=== PATIENT | female | born 1970 | race American Indian/Alaskan Native ===

== ENCOUNTER 2017-07-22 19:50 | Emergency (ER) | payer MEDICAID ==
[~2017-07-22] VITALS: Ht 157.5 cm; Wt 75.0 kg
[~2017-07-22 19:50] MED LIST: ALBU8.5H4 IH; DIL100C PO; PHEN100C4 PO
[2017-07-22] MEDS ORDERED: normal saline 1000ML IV soln IVB ONE (20:45)
[2017-07-22] MEDS ORDERED: LORazepam 2 mg/ml vial IV ONE (20:45)
[2017-07-22 21:20] LABS: BASOPHILS # (AUTO) 0.1 X10'3 (0-0.2); BASOPHILS % (AUTO) 0.6 % (0-1); EOSINOPHILS # (AUTO) 0.1 X10'3 (0-0.9); EOSINOPHILS % (AUTO) 1.6 % (0-6); HEMATOCRIT 23.9 % (35.0-45.0); HEMOGLOBIN 7.4 g/dl (12.0-16.0); LYMPHOCYTES # (AUTO) 1.8 X10'3 (1.1-4.8); LYMPHOCYTES % (AUTO) 20.6 % (21-51); MEAN CORPUSCULAR HEMOGLOBIN 19.1 PG (27.0-31.0); MEAN CORPUSCULAR HGB CONC 31.1 % (33.0-36.5); MEAN CORPUSCULAR VOLUME 61.5 FL (78-98); MEAN PLATELET VOLUME 8.7 FL (7.4-10.4); MONOCYTES # (AUTO) 0.4 X10'3 (0-0.9); MONOCYTES % (AUTO) 4.8 % (2-12); NEUTROPHILS # (AUTO) 6.3 X10'3 (1.8-7.7); NEUTROPHILS % (AUTO) 72.4 % (42-75); PLATELET COUNT 264 X10'3 (140-440); RED BLOOD COUNT 3.88 X10'6 (4.20-5.60); RED CELL DISTRIBUTION WIDTH 20.3 % (11.5-14.5); WHITE BLOOD COUNT 8.7 X10'3 (4.5-11.0)
[2017-07-22 21:31] LABS: PARTIAL THROMBOPLASTIN TIME 24 SECONDS (22-32); PROTHROMBIN TIME 10.3 SECONDS (9.0-12.0)
[2017-07-22 21:35] LABS: ALANINE AMINOTRANSFERASE 78 U/L (12-78); ALBUMIN 3.4 G/DL (3.4-5.0); ALBUMIN/GLOBULIN RATIO 0.8 (1.1-1.5); ALKALINE PHOSPHATASE 102 IU/L (46-116); ANION GAP 10 (8-16); ASPARTATE AMINO TRANSFERASE 42 U/L (10-37); BILIRUBIN,TOTAL 0.2 MG/DL (0.1-1.0); BLOOD UREA NITROGEN 14 MG/DL (7-18); BUN/CREATININE RATIO 12.2 (6.6-38.0); CALCIUM 8.8 MG/DL (8.5-10.1); CHLORIDE 104 MMOL/L (99-107); CREATININE 1.15 MG/DL (0.40-0.90); ETHANOL < 0.010 GM/DL (0.0-0.010); GLUCOSE 112 MG/DL (70-104); PHENYTOIN (DILANTIN) < 0.5 UG/ML (10.0-20.0); POTASSIUM 3.4 MMOL/L (3.5-5.1); SODIUM 141 MMOL/L (135-145); TOTAL PROTEIN 7.5 G/DL (6.4-8.2); eGFR 51 ML/MIN
[2017-07-22 21:40] LABS: URINE AMPHETAMINE SCREEN NEGATIVE (Neg); URINE BARBITUATE SCREEN NEGATIVE (Neg); URINE BENZODIAZEPINES SCREEN NEGATIVE (Neg); URINE CANNABINOID SCREEN NEGATIVE (Neg); URINE COCAINE SCREEN NEGATIVE (Neg); URINE METHADONE SCREEN NEGATIVE (Neg); URINE OPIATE SCREEN NEGATIVE (Neg); URINE PHENCYCLIDINE SCREEN NEGATIVE (Neg)
[2017-07-22] MEDS ORDERED: levetiracetam inj 1,500 MG in normal saline 100ml IV soln 85 ML IV STA (21:46)
[2017-07-22 21:48] LABS: CLARITY,URINE SLIGHTLY CLOUDY (Clear); COLOR,URINE YELLOW (Yellow); GLUCOSE, URINE NEGATIVE (Neg); KETONES,URINE NEGATIVE (Neg); LEUKOCYTE ESTERASE ,URINE SMALL (Neg); NITRITES, URINE POSITIVE (Neg); OCCULT BLOOD,URINE NEGATIVE (Neg); PROTEIN,URINE NEGATIVE (Neg); UROBILINOGEN,URINE 0.2 E.U/dL (0.2-1.0)
[2017-07-22] MEDS ORDERED: KEP500T PO (21:51)
[2017-07-22 21:56] LABS: UA COLLECTION TYPE CLN CATCH MIDSTREAM
[2017-07-22 21:57] LABS: BACTERIA,URINE 4+ /HPF (Neg); RBC,URINE 0-2 /HPF (0-2)
[2017-07-22 21:58] LABS: SQUAMOUS EPITHELIAL CELL,UR FEW /LPF (FEW)
[2017-07-22] MEDS ORDERED: levetiracetam 100mg/ml inj IV ONE (22:05)
[2017-07-22 22:36] LABS: PLATELET ESTIMATE NORMAL
[2017-07-22 22:37] VITALS: BP 94/65
[2017-07-22 22:37] LABS: ANISOCYTOSIS 2+; MICROCYTOSIS 2+
[2017-07-22 22:38] LABS: HYPOCHROMASIA 1+
[2017-07-22 22:39] LABS: ELLIPTOCYTES 1+; TEAR DROP CELLS 1+
== END 2017-07-22 22:52 | disposition home or self-care (01) ==
LOC: ER 19:51
DX: R56.9 Unspecified convulsions (principal); T75.1XXA Unspecified effects of drowning and nonfatal submersion, initial encounter; D64.9 Anemia, unspecified; Y93.39 Activity, other involving climbing, rappelling and jumping off; Y92.89 Other specified places as the place of occurrence of the external cause; Y99.8 Other external cause status; I10 Essential (primary) hypertension; J45.909 Unspecified asthma, uncomplicated; Z90.49 Acquired absence of other specified parts of digestive tract; Z88.5 Allergy status to narcotic agent; Z88.1 Allergy status to other antibiotic agents; Z88.8 Allergy status to other drugs, medicaments and biological substances; Z91.018 Allergy to other foods; Z79.899 Other long term (current) drug therapy
CPT/HCPCS: 36415; 70450; 71045; 80053; 80185; 80305; 80320; 81001; 82140; 82948; 85025; 85610; 85730; 87077; 87088; 87186; 93005; 96361; 96374; 96375; 99285; J1953; J2060; J7030

== ENCOUNTER 2018-02-18 18:25 | Emergency (ER) | payer MEDICAID ==
[~2018-02-18] VITALS: Ht 160 cm; Wt 80.0 kg
[~2018-02-18 18:25] MED LIST changes: +BACI28OI9 TP; +KEP500T PO
[2018-02-18 18:31] VITALS: BP 129/84
[2018-02-18] MEDS ORDERED: ibuprofen 200mg tablet PO ONE (19:05)
[2018-02-18] MEDS ORDERED: ibuprofen tablet 400 MG TABLET PO ONE (19:05)
== END 2018-02-18 19:59 | disposition home or self-care (01) ==
LOC: ER 18:25
DX: S53.402A Unspecified sprain of left elbow, initial encounter (principal); I10 Essential (primary) hypertension; J45.909 Unspecified asthma, uncomplicated; Z90.49 Acquired absence of other specified parts of digestive tract; Z88.5 Allergy status to narcotic agent; Z91.018 Allergy to other foods; Z88.1 Allergy status to other antibiotic agents; Z88.8 Allergy status to other drugs, medicaments and biological substances; Z79.899 Other long term (current) drug therapy; W17.89XA Other fall from one level to another, initial encounter; Y93.89 Activity, other specified; Y92.89 Other specified places as the place of occurrence of the external cause; Y99.8 Other external cause status
CPT/HCPCS: 29125; 73090; 99284

== ENCOUNTER 2018-02-27 09:37 | Outpatient (CLI) | payer MEDICAID ==
[2018-02-27 09:35] VITALS: BP 108/72
[2018-02-28] MEDS ORDERED: IBUP-1985 PO (22:51)
== END 2018-02-27 10:22 | disposition home or self-care (01) ==
LOC: ORTHO 09:37
PROVIDERS: ATTEND Nurse Practitioner Family
DX: S59.812A Other specified injuries left forearm, initial encounter (principal); S69.82XA Other specified injuries of left wrist, hand and finger(s), initial encounter; J45.909 Unspecified asthma, uncomplicated; Z88.5 Allergy status to narcotic agent; Z88.1 Allergy status to other antibiotic agents; Z88.8 Allergy status to other drugs, medicaments and biological substances; W18.39XA Other fall on same level, initial encounter; Y93.89 Activity, other specified; Y92.89 Other specified places as the place of occurrence of the external cause; Y99.8 Other external cause status
CPT/HCPCS: 99213; A4590

== ENCOUNTER 2018-02-28 21:26 | Emergency (ER) | payer MEDICAID ==
[~2018-02-28] VITALS: Ht 160 cm; Wt 100.0 kg
[2018-02-28 21:46] VITALS: BP 131/83
[2018-02-28] MEDS ORDERED: HYDROcodone/acetaminophen 5mg/325mg tablet PO ONE (22:40)
[2018-02-28] MEDS ORDERED: IBUP-1985 PO (22:51)
== END 2018-02-28 23:33 | disposition home or self-care (01) ==
LOC: ER 21:27
DX: S96.912A Strain of unspecified muscle and tendon at ankle and foot level, left foot, initial encounter (principal); I10 Essential (primary) hypertension; J45.909 Unspecified asthma, uncomplicated; Z90.49 Acquired absence of other specified parts of digestive tract; Z88.6 Allergy status to analgesic agent; Z88.1 Allergy status to other antibiotic agents; Z88.8 Allergy status to other drugs, medicaments and biological substances; Z91.018 Allergy to other foods; X58.XXXA Exposure to other specified factors, initial encounter; Y93.89 Activity, other specified; Y92.89 Other specified places as the place of occurrence of the external cause; Y99.8 Other external cause status
CPT/HCPCS: 29515; 73610; 99283

== ENCOUNTER 2018-03-02 18:54 | Emergency (ER) | payer MEDICAID ==
[~2018-03-02] VITALS: Ht 160 cm; Wt 100.0 kg
[~2018-03-02 18:54] MED LIST changes: +IBUP-1985 PO
[2018-03-02 19:00] VITALS: BP 122/70
--- NOTE | 2018-03-02 19:25 | NUR ---
PT STATES, IM HERE FOR ANOTHER XRAY
== END 2018-03-02 19:52 | disposition home or self-care (01) ==
LOC: ER 18:54
DX: M79.672 Pain in left foot (principal); I10 Essential (primary) hypertension; J45.909 Unspecified asthma, uncomplicated; Z90.49 Acquired absence of other specified parts of digestive tract; Z98.890 Other specified postprocedural states; Z88.5 Allergy status to narcotic agent; Z88.1 Allergy status to other antibiotic agents; Z79.899 Other long term (current) drug therapy
CPT/HCPCS: 99281

== ENCOUNTER 2018-03-06 14:28 | Outpatient (CLI) | payer MEDICAID ==
[2018-03-06 14:30] VITALS: BP 125/79
== END 2018-03-06 15:00 | disposition home or self-care (01) ==
LOC: ORTHO 14:28
PROVIDERS: ATTEND Nurse Practitioner Family
DX: S82.832A Other fracture of upper and lower end of left fibula, initial encounter for closed fracture (principal); I10 Essential (primary) hypertension; J45.909 Unspecified asthma, uncomplicated; F41.9 Anxiety disorder, unspecified; R56.9 Unspecified convulsions; Z90.49 Acquired absence of other specified parts of digestive tract; Z88.6 Allergy status to analgesic agent; Z88.1 Allergy status to other antibiotic agents; Z88.8 Allergy status to other drugs, medicaments and biological substances; Z91.018 Allergy to other foods; X58.XXXA Exposure to other specified factors, initial encounter; Y93.89 Activity, other specified; Y92.89 Other specified places as the place of occurrence of the external cause; Y99.8 Other external cause status
CPT/HCPCS: G0463

== ENCOUNTER 2018-04-01 11:37 | Outpatient (CLI) | payer MEDICAID ==
[2018-04-01 11:33] VITALS: BP 136/80
== END 2018-04-01 12:08 | disposition home or self-care (01) ==
LOC: ORTHO 11:37
PROVIDERS: ATTEND Nurse Practitioner Family
DX: M25.572 Pain in left ankle and joints of left foot (principal); J45.909 Unspecified asthma, uncomplicated; Z88.5 Allergy status to narcotic agent; Z88.8 Allergy status to other drugs, medicaments and biological substances; Z91.018 Allergy to other foods
CPT/HCPCS: 73610; 99213

== ENCOUNTER 2018-04-24 11:00 | Outpatient (CLI) | payer MEDICAID ==
[2018-04-24 11:03] VITALS: BP 126/73
== END 2018-04-24 11:27 | disposition home or self-care (01) ==
LOC: ORTHO 11:00
PROVIDERS: ATTEND Nurse Practitioner Family
DX: M77.32 Calcaneal spur, left foot (principal); M19.072 Primary osteoarthritis, left ankle and foot; J45.909 Unspecified asthma, uncomplicated; Z88.5 Allergy status to narcotic agent; Z88.1 Allergy status to other antibiotic agents; Z91.018 Allergy to other foods
CPT/HCPCS: 73610; 99213

== ENCOUNTER 2018-05-21 15:00 | Outpatient (CLI) | payer MEDICAID ==
[2018-05-21 14:58] VITALS: BP 151/85
== END 2018-05-21 15:02 | disposition home or self-care (01) ==
LOC: ORTHO 15:00
PROVIDERS: ATTEND Orthopaedic Surgery
DX: M19.072 Primary osteoarthritis, left ankle and foot (principal); G40.89 Other seizures; J45.909 Unspecified asthma, uncomplicated; Z88.5 Allergy status to narcotic agent; Z88.8 Allergy status to other drugs, medicaments and biological substances
CPT/HCPCS: 73610; 99213

== ENCOUNTER 2018-07-03 13:26 | Emergency (ER) | payer MEDICAID ==
[~2018-07-03] VITALS: Ht 160 cm; Wt 99.5 kg
[~2018-07-03 13:26] MED LIST changes: +ALBU8HFA PO; +PSEU120T55 PO
[2018-07-03 13:40] VITALS: BP 116/72
--- NOTE | 2018-07-03 14:42 | NUR ---
PATIENT AMBULATORY TO ER FAST TRACK #C WITH C/O DOG BITE ON LEFT FOREARM THIS MORNING. THE DOG IS 3 MONTHS OLD AND BELONGS TO HER DAUGHTER. DOG IS NOT VACCINATED AT THIS TIME. 2 SCABBED PUNCTURE WOUNDS NOTED TO DISTAL LEFT FOREARM. NO DRAINAGE AT THIS TIME.
[2018-07-03] MEDS ORDERED: TETanus/Pertussis (Acell)/Diphther VAC/PF (Tdap-Adult) 0.5ml syringe IM ONE (14:50)
[2018-07-03] MEDS ORDERED: AMOX-422 PO (14:51)
== END 2018-07-03 15:17 | disposition home or self-care (01) ==
LOC: ER 13:27
DX: S61.532A Puncture wound without foreign body of left wrist, initial encounter (principal); I10 Essential (primary) hypertension; J45.909 Unspecified asthma, uncomplicated; Z90.49 Acquired absence of other specified parts of digestive tract; Z98.890 Other specified postprocedural states; Z60.2 Problems related to living alone; Z88.5 Allergy status to narcotic agent; Z91.018 Allergy to other foods; Z88.1 Allergy status to other antibiotic agents; Z79.899 Other long term (current) drug therapy; W54.0XXA Bitten by dog, initial encounter; Y93.89 Activity, other specified; Y92.89 Other specified places as the place of occurrence of the external cause; Y99.8 Other external cause status
CPT/HCPCS: 90471; 90715; 99283

== ENCOUNTER 2018-11-16 18:07 | Emergency (ER) | payer MEDICAID ==
[~2018-11-16] VITALS: Ht 162.6 cm; Wt 92.7 kg
[~2018-11-16 18:07] MED LIST changes: -ALBU8HFA PO
[2018-11-16] MEDS ORDERED: ketorolac tromethamine 15mg/ml inj. IM ONE (18:35)
[2018-11-16 19:26] VITALS: BP 134/95
--- NOTE | 2018-11-16 20:07 | NUR ---
pt discharged before nurse assessed
== END 2018-11-16 19:40 | disposition home or self-care (01) ==
LOC: ER 18:08
DX: M25.572 Pain in left ankle and joints of left foot (principal); I10 Essential (primary) hypertension; J45.909 Unspecified asthma, uncomplicated; Z90.49 Acquired absence of other specified parts of digestive tract; Z98.890 Other specified postprocedural states; Z88.5 Allergy status to narcotic agent; Z88.1 Allergy status to other antibiotic agents; W18.30XA Fall on same level, unspecified, initial encounter; Y93.89 Activity, other specified; Y92.89 Other specified places as the place of occurrence of the external cause; Y99.9 Unspecified external cause status
CPT/HCPCS: 96372; 99283; J1885

== ENCOUNTER 2018-12-06 20:08 | Emergency (ER) | payer MEDICAID | END 2018-12-06 22:00 | disposition left against medical advice (07) | LOC: ER 20:09 | DX: M79.605 Pain in left leg (principal); Z53.21 Procedure and treatment not carried out due to patient leaving prior to being seen by health care provider ==

== ENCOUNTER 2019-02-08 16:15 | Emergency (ER) | payer MEDICAID ==
[~2019-02-08] VITALS: Ht 157.5 cm; Wt 90.0 kg
--- NOTE | 2019-02-08 17:23 | NUR ---
chest xray done
[2019-02-08 17:29] LABS: BASOPHILS # (AUTO) 0.1 X10'3 (0-0.2); BASOPHILS % (AUTO) 1.5 % (0-1); EOSINOPHILS # (AUTO) 0.2 X10'3 (0-0.9); EOSINOPHILS % (AUTO) 2.5 % (0-6); HEMATOCRIT 27.2 % (35.0-45.0); HEMOGLOBIN 8.6 g/dl (12.0-16.0); LYMPHOCYTES # (AUTO) 1.9 X10'3 (1.1-4.8); LYMPHOCYTES % (AUTO) 30.9 % (21-51); MEAN CORPUSCULAR HEMOGLOBIN 20.6 PG (27.0-31.0); MEAN CORPUSCULAR HGB CONC 31.6 g/dL (33.0-36.5); MEAN CORPUSCULAR VOLUME 65.2 FL (78-98); MEAN PLATELET VOLUME 9.1 FL (7.4-10.4); MONOCYTES # (AUTO) 0.4 X10'3 (0-0.9); MONOCYTES % (AUTO) 6.7 % (2-12); NEUTROPHILS # (AUTO) 3.6 X10'3 (1.8-7.7); NEUTROPHILS % (AUTO) 58.4 % (42-75); PLATELET COUNT 271 X10'3 (140-440); RED BLOOD COUNT 4.17 X10'6 (4.20-5.60); RED CELL DISTRIBUTION WIDTH 19.1 % (11.5-14.5); WHITE BLOOD COUNT 6.2 X10'3 (4.5-11.0)
[2019-02-08 17:30] VITALS: BP 116/73
[2019-02-08 17:47] LABS: ALANINE AMINOTRANSFERASE 34 U/L (12-78); ALBUMIN 3.7 G/DL (3.4-5.0); ALBUMIN/GLOBULIN RATIO 0.9 (1.1-1.5); ALKALINE PHOSPHATASE 75 IU/L (46-116); ANION GAP 8 (8-16); ASPARTATE AMINO TRANSFERASE 17 U/L (10-37); BILIRUBIN,TOTAL 0.2 MG/DL (0.1-1.0); BLOOD UREA NITROGEN 22 MG/DL (7-18); BUN/CREATININE RATIO 24.4 (6.6-38.0); CALCIUM 8.8 MG/DL (8.5-10.1); CHLORIDE 105 MMOL/L (99-107); GLUCOSE 92 MG/DL (70-104); POTASSIUM 3.9 MMOL/L (3.5-5.1); SODIUM 141 MMOL/L (135-145); TOTAL CARBON DIOXIDE 27.8 MMOL/L (24-32); TOTAL PROTEIN 7.8 G/DL (6.4-8.2); eGFR 67 ML/MIN
[2019-02-08] MEDS ORDERED: ipratropium/albuterol 3ml nebule NEB ONE (18:05)
== END 2019-02-08 18:50 | disposition home or self-care (01) ==
LOC: ER 16:16
DX: J45.909 Unspecified asthma, uncomplicated (principal); J06.9 Acute upper respiratory infection, unspecified; R10.13 Epigastric pain; R06.02 Shortness of breath; I10 Essential (primary) hypertension; Z90.49 Acquired absence of other specified parts of digestive tract; Z98.890 Other specified postprocedural states; Z88.5 Allergy status to narcotic agent; Z88.1 Allergy status to other antibiotic agents; Z88.8 Allergy status to other drugs, medicaments and biological substances; Z79.899 Other long term (current) drug therapy
CPT/HCPCS: 71045; 80053; 85025; 94640; 94760; 99284

== ENCOUNTER 2019-02-26 12:07 | Emergency (ER) | payer MEDICAID ==
[~2019-02-26] VITALS: Ht 157.5 cm; Wt 87.5 kg
[~2019-02-26 12:07] MED LIST changes: -BACI28OI9 TP; -DIL100C PO; -IBUP-1985 PO; -KEP500T PO; -PHEN100C4 PO; -PSEU120T55 PO
[2019-02-26 12:11] VITALS: BP 118/90
[2019-02-26] MEDS ORDERED: SULF1TAB49 PO (12:57)
== END 2019-02-26 13:10 | disposition home or self-care (01) ==
LOC: ER 12:08
DX: S30.861A Insect bite (nonvenomous) of abdominal wall, initial encounter (principal); L03.311 Cellulitis of abdominal wall; I10 Essential (primary) hypertension; J45.909 Unspecified asthma, uncomplicated; Z90.49 Acquired absence of other specified parts of digestive tract; Z98.890 Other specified postprocedural states; Z88.5 Allergy status to narcotic agent; Z88.1 Allergy status to other antibiotic agents; W57.XXXA Bitten or stung by nonvenomous insect and other nonvenomous arthropods, initial encounter; Y93.89 Activity, other specified; Y92.89 Other specified places as the place of occurrence of the external cause; Y99.9 Unspecified external cause status
CPT/HCPCS: 99283

== ENCOUNTER 2019-08-21 15:26 | Emergency (ER) | payer MEDICAID ==
[~2019-08-21] VITALS: Ht 172.7 cm; Wt 90.0 kg
[2019-08-21] MEDS ORDERED: ibuprofen tablet 400 MG TABLET PO ONE (16:20)
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
[2019-08-21] MEDS ORDERED: IBUP-1984 PO (17:07)
[2019-08-21 17:12] VITALS: BP 131/84
--- NOTE | 2019-08-21 17:26 | NUR ---
patient verbalized she was discharging to a safe place and had her own slide card to ride the bus. She left her cell number so that it can be given to the Officer when they show up to take the report. [phone] cell
== END 2019-08-21 17:42 | disposition home or self-care (01) ==
LOC: ER 15:27
DX: M25.522 Pain in left elbow (principal); M25.532 Pain in left wrist; I10 Essential (primary) hypertension; J45.909 Unspecified asthma, uncomplicated; F41.9 Anxiety disorder, unspecified; Z90.89 Acquired absence of other organs; Z98.890 Other specified postprocedural states; Z60.2 Problems related to living alone; Z88.5 Allergy status to narcotic agent; Z88.1 Allergy status to other antibiotic agents; Z91.018 Allergy to other foods; Z88.8 Allergy status to other drugs, medicaments and biological substances; Z79.899 Other long term (current) drug therapy
CPT/HCPCS: 73080; 99283

== ENCOUNTER 2019-10-03 11:40 | Emergency (ER) | payer MEDICAID ==
[~2019-10-03] VITALS: Ht 165.1 cm; Wt 75.0 kg
[2019-10-03 11:58] VITALS: BP 105/54
[2019-10-03] MEDS ORDERED: DOXY100C43 PO (14:31)
== END 2019-10-03 14:55 | disposition home or self-care (01) ==
LOC: ER 11:41
DX: H00.036 Abscess of eyelid left eye, unspecified eyelid (principal); I10 Essential (primary) hypertension; J45.909 Unspecified asthma, uncomplicated; F41.9 Anxiety disorder, unspecified; Z86.69 Personal history of other diseases of the nervous system and sense organs; Z90.89 Acquired absence of other organs; Z98.890 Other specified postprocedural states; Z60.2 Problems related to living alone; Z88.5 Allergy status to narcotic agent; Z88.1 Allergy status to other antibiotic agents; Z88.8 Allergy status to other drugs, medicaments and biological substances; Z79.899 Other long term (current) drug therapy
CPT/HCPCS: 99283

== ENCOUNTER 2020-01-06 17:15 | Emergency (ER) | payer MEDICAID ==
[~2020-01-06] VITALS: Ht 160 cm; Wt 102.5 kg
[2020-01-06 17:24] VITALS: BP 127/77
[2020-01-06] MEDS ORDERED: IBUP-1984 PO (18:58)
== END 2020-01-06 19:11 | disposition home or self-care (01) ==
LOC: ER 17:16
DX: R07.89 Other chest pain (principal); I10 Essential (primary) hypertension; J45.909 Unspecified asthma, uncomplicated; F41.9 Anxiety disorder, unspecified; Z79.899 Other long term (current) drug therapy; Z88.5 Allergy status to narcotic agent; Z88.1 Allergy status to other antibiotic agents; Z91.018 Allergy to other foods; V87.7XXA Person injured in collision between other specified motor vehicles (traffic), initial encounter; Y93.89 Activity, other specified; Y92.89 Other specified places as the place of occurrence of the external cause; Y99.8 Other external cause status
CPT/HCPCS: 71045; 99283

== ENCOUNTER 2020-09-25 14:16 | Emergency (ER) | payer MEDICAID ==
[~2020-09-25] VITALS: Ht 157.5 cm; Wt 102.7 kg
[2020-09-25 14:25] VITALS: BP 105/72
== END 2020-09-25 16:22 | disposition home or self-care (01) ==
LOC: ER 14:16
DX: S90.32XA Contusion of left foot, initial encounter (principal); I10 Essential (primary) hypertension; J45.909 Unspecified asthma, uncomplicated; S99.922A Unspecified injury of left foot, initial encounter; G40.909 Epilepsy, unspecified, not intractable, without status epilepticus; Z88.5 Allergy status to narcotic agent; Z88.1 Allergy status to other antibiotic agents; Z91.018 Allergy to other foods; Z79.899 Other long term (current) drug therapy; Z87.81 Personal history of (healed) traumatic fracture; Z90.49 Acquired absence of other specified parts of digestive tract; Z98.891 History of uterine scar from previous surgery; W22.8XXA Striking against or struck by other objects, initial encounter; Y93.89 Activity, other specified; Y92.524 Gas station as the place of occurrence of the external cause; Y99.8 Other external cause status
CPT/HCPCS: 73630; 99283

== ENCOUNTER 2021-03-02 15:27 | Emergency (ER) | payer MEDICAID ==
[~2021-03-02] VITALS: Ht 157.5 cm; Wt 93.2 kg
[2021-03-03] MEDS ORDERED: ketorolac trometh inj. 60 MG/2 ML VIAL IM ONE (00:45)
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
[2021-03-03 02:00] VITALS: BP 121/76
== END 2021-03-03 02:03 | disposition home or self-care (01) ==
LOC: ER 15:28
DX: M54.50 Low back pain, unspecified (principal); I10 Essential (primary) hypertension; J45.909 Unspecified asthma, uncomplicated; F41.9 Anxiety disorder, unspecified; Z86.69 Personal history of other diseases of the nervous system and sense organs; Z90.89 Acquired absence of other organs; Z98.890 Other specified postprocedural states; Z60.2 Problems related to living alone; Z88.5 Allergy status to narcotic agent; Z88.1 Allergy status to other antibiotic agents; Z88.8 Allergy status to other drugs, medicaments and biological substances; Z79.899 Other long term (current) drug therapy; Y08.89XA Assault by other specified means, initial encounter; Y93.89 Activity, other specified; Y92.89 Other specified places as the place of occurrence of the external cause; Y99.8 Other external cause status
CPT/HCPCS: 72110; 96372; 99283; J1885

== ENCOUNTER 2021-07-29 18:28 | Emergency (ER) | payer MEDICAID ==
[~2021-07-29] VITALS: Ht 157.5 cm; Wt 95.5 kg
[2021-07-29 18:40] VITALS: BP 125/93
[2021-07-29] MEDS ORDERED: ketorolac trometh. 30mg/ml inj. IM ONE (20:40)
== END 2021-07-29 20:57 | disposition home or self-care (01) ==
LOC: ER 18:29
DX: M54.50 Low back pain, unspecified (principal); M25.551 Pain in right hip; I10 Essential (primary) hypertension; J45.909 Unspecified asthma, uncomplicated; F41.9 Anxiety disorder, unspecified; Z90.49 Acquired absence of other specified parts of digestive tract; Z98.890 Other specified postprocedural states; Z60.2 Problems related to living alone; Z88.5 Allergy status to narcotic agent; Z91.018 Allergy to other foods; Z88.1 Allergy status to other antibiotic agents; Z79.899 Other long term (current) drug therapy
CPT/HCPCS: 72100; 73502; 96372; 99284; J1885

== ENCOUNTER 2023-08-30 15:36 | Emergency (ER) | payer MEDICAID ==
[~2023-08-30] VITALS: Ht 157.5 cm; Wt 98.7 kg
[2023-08-30] MEDS: acetaminophen 325mg tablet PO ONE (16:37)
[2023-08-30] MEDS: ondansetron 4mg rapidly disintigrating tab PO ONE (16:37)
[2023-08-30 17:26] VITALS: BP 132/78; PULSE 75; RESP 14; TEMP 98.6; O2SAT 98
== END 2023-08-30 17:28 | disposition home or self-care (01) ==
LOC: ER 15:37
DX: S02.40CA Maxillary fracture, right side, initial encounter for closed fracture (principal); S06.0X0A Concussion without loss of consciousness, initial encounter; I10 Essential (primary) hypertension; J45.909 Unspecified asthma, uncomplicated; I25.10 Atherosclerotic heart disease of native coronary artery without angina pectoris; F41.9 Anxiety disorder, unspecified; Z98.890 Other specified postprocedural states; Z90.49 Acquired absence of other specified parts of digestive tract; Z88.1 Allergy status to other antibiotic agents; Z88.8 Allergy status to other drugs, medicaments and biological substances; Z91.018 Allergy to other foods; Z79.899 Other long term (current) drug therapy; X58.XXXA Exposure to other specified factors, initial encounter; Y93.9 Activity, unspecified; Y92.89 Other specified places as the place of occurrence of the external cause; Y99.8 Other external cause status
CPT/HCPCS: 70450; 70486; 99284

== ENCOUNTER 2023-09-27 17:31 | Emergency (ER) | payer MEDICAID ==
[~2023-09-27] VITALS: Ht 157.5 cm; Wt 99.2 kg
[2023-09-27] MEDS: dexamethasone sod phosphate 10mg/ml inj IM STA (18:06)
[2023-09-27] MEDS: diphenhydrAMINE 50 mg/ml inj IM ONE (18:06)
[2023-09-27] MEDS ORDERED: PRED50TA PO (18:19)
[2023-09-27] MEDS ORDERED: HYDR-3686 PO (18:19)
[2023-09-27 18:24] VITALS: BP 146/84; PULSE 92; RESP 16; TEMP 98.6; O2SAT 95
== END 2023-09-27 18:28 | disposition home or self-care (01) ==
LOC: ER 17:31
DX: T63.441A Toxic effect of venom of bees, accidental (unintentional), initial encounter (principal); H01.9 Unspecified inflammation of eyelid; I10 Essential (primary) hypertension; J45.909 Unspecified asthma, uncomplicated; F41.9 Anxiety disorder, unspecified; I25.10 Atherosclerotic heart disease of native coronary artery without angina pectoris; Z88.5 Allergy status to narcotic agent; Z88.1 Allergy status to other antibiotic agents; Z91.018 Allergy to other foods; Z79.899 Other long term (current) drug therapy; Y92.89 Other specified places as the place of occurrence of the external cause
CPT/HCPCS: 96372; 99284; J1100; J1200

== ENCOUNTER 2024-10-23 16:12 | Emergency (ER) | payer MEDICAID ==
[~2024-10-23] VITALS: Ht 157.5 cm; Wt 109.0 kg
[~2024-10-23 16:12] MED LIST changes: +PRED50TA PO
[2024-10-23 16:15] VITALS: BP 116/75; PULSE 95; RESP 16; O2SAT 95
--- NOTE | 2024-10-23 16:48 | Physician Documentation ---
History of Present Illness ~ Chief Complaint: Elbow pain Stated Complaint: FALL Time Seen by MD: 17:29 Primary Medical Doctor: [facility] HPI This is a 54-year-old female who presents with left elbow pain following a ground level trip and fall, patient reports range of motion intact. Tetanus within 5 years: No Medication Reconciliation Allergies: Coded Allergies: morphine (Verified Allergy, Intermediate, 09/27/23) strawberry (Verified Allergy, Intermediate, 09/27/23) Cephalexin Monohydrate (Unverified Allergy, Unknown, RASH, 09/27/23) carbamazepine (Unverified Allergy, Unknown, 09/27/23) Scheduled Prednisone (Prednisone), 1 TAB PO DAILY Scheduled PRN Albuterol Inhaler* (Albuterol Inhaler*), 1 PUFF IH Q6H PRN for SOB or wheezing, (Reported) Past Medical History Past Medical History: Headache, Seizures, *CARDIOVASCULAR*, Hypertension, Asthma, Extremity Fracture, Anxiety Past Surgical History: abdominal surgery, appendectomy, Patient History: (CAD) Coronary arteriosclerosis FATHER, , Age: 71 (DM Type 2) Diabetes mellitus type 2 MOTHER (TIA) Transient ischemic attack FATHER, , Age: 71 MOTHER Alcohol Use: None Drug Use: none Lives with: Alone Lives In: Home Occupation: disabled Review of Systems ROS As stated above in the HPI, otherwise all systems are reviewed and negative. Physical Exam Vital Signs: Temperature: 98.2, Source: Temporal, Heart Rate: 95, Respiratory Rate: 16, BP: 116/75, Pulse Oximetry: 95, Weight: 109.000 Oxygen Flow Rate: 0 Physical Exam VITALS: Reviewed and as above. GENERAL: Alert, nontoxic appearing, no apparent distress. RESPIRATORY: No increased work of breathing, no respiratory distress, speaking in full clear sentences CV: Brisk capillary refill and radial pulse intact distal to injury MUSCULOSKELETAL: Small of ecchymosis to left posterior elbow, active range of motion intact, no tenderness to palpation to medial, lateral, or anterior surface of elbow SKIN: Abrasion to left posterior elbow NEURO: Sensation intact to left arm distal to the injury Progress Results/Orders Results/Orders Orders - IGOR LARA Ortho Orders (10/23/24 ) Completed Orders - IGOR LARA Ketorolac Trometh 15mg/Ml Vial (Toradol (10/23/24 18:40) Ibuprofen Tablet (Motrin Tablet) (10/23/24 19:00) Medications Received in ER Medications (Trade) Dose Ordered Sig/See Route PRN Reason Start Time Stop Time Status Last Admin Dose Admin (Motrin tablet) 800 mg ONCE ONCE PO 10/23/24 19:00 10/23/24 19:01 DC 10/23/24 19:07 800 MG Vital Signs 10/23/24 10/23/24 16:15 19:10 Temp 98.2 98.2 Pulse 95 Resp 16 B/P (MAP) 116/75 Pulse Ox 95 O2 Flow Rate 0 Medical Decision Making Findings MSE performed in triage and patient returned to ED lobby by nursing staff to await available ED room This is a 54-year-old female who presented with left elbow pain following a mechanical ground level fall. It was reassuring range of motion is intact to the left elbow and there is not significant swelling, therefore imaging is not indicated, there is a small amount of ecchymosis and abrasion to the posterior aspect of the left elbow. Abrasion was dressed, patient provided a sling and ice pack, plan is to treat with rest, ice, compression, and elevation. Patient provided home care instructions and return to care precautions which she verbalized understanding of. General Diff Dx:Considerations: Include: Contusion, Fracture, Laceration, Neurovascular injury, Sprain Elbow Diff Dx:Considerations: Include: DJD, Gout, Olecranon bursitis, Septic Departure Time of Disposition: 18:57 Disposition: 01 HOME / SELF CARE / HOMELESS Impression: Primary Impression: Elbow pain, left Additional Impression: Abrasion of elbow, left Qualified Codes: S50.312A - Abrasion of left elbow, initial encounter Discharge Instructions: Elbow Injury Additional Instructions: Please use the sling to help ice your elbow 6 times a day with the next three days, ice it for 20 minutes at a time (no more). Keep the abrasion to your elbow clean dry and covered. May use ibuprofen and or Tylenol as directed by [id number] packaging as needed for pain. Please follow up with your primary care provider in the next few days. Please return to the emergency department for any new or worsening concerning symptoms. Referrals: NO PRIMARY CARE PROVIDER (PCP) Education Educated: Patient Educated regarding: diagnosis, treatment, prognosis, need for follow up Signature Scribe Signature: No scribe Attestation: The note accurately reflects work and decisions made by me.AMAN Pizarro 10/23/24 20:25 IGOR LARA Oct 23, 2024 16:48
[2024-10-23] MEDS ORDERED: ketorolac trometh 15mg/ml vial 15 MG/ML ML IM ONE (18:40)
[2024-10-23] MEDS: ibuprofen tablet 400 MG TABLET PO ONE (19:07)
[2024-10-23 19:10] VITALS: TEMP 98.2
== END 2024-10-23 19:22 | disposition home or self-care (01) ==
LOC: ER 16:12
DX: S50.312A Abrasion of left elbow, initial encounter (principal); I10 Essential (primary) hypertension; I25.10 Atherosclerotic heart disease of native coronary artery without angina pectoris; J45.909 Unspecified asthma, uncomplicated; Z88.5 Allergy status to narcotic agent; Z88.8 Allergy status to other drugs, medicaments and biological substances; Z90.49 Acquired absence of other specified parts of digestive tract; W01.0XXA Fall on same level from slipping, tripping and stumbling without subsequent striking against object, initial encounter; Y93.89 Activity, other specified; Y92.89 Other specified places as the place of occurrence of the external cause; Y99.8 Other external cause status
CPT/HCPCS: 99283; A4565; A6449